=== PATIENT | female | born 1960 | race Caucasian/White ===

== ENCOUNTER → 2017-08-22 | Outpatient (CLI) | payer OTHER ==
--- NOTE | 2017-08-22 14:43 | DIREP ---
PROCEDURE:MRI SPINE LUMBAR W/O COMPARISON:None. INDICATIONS:RADICULOPATHY TECHNIQUE:A comprehensive examination was performed utilizing a variety of imaging planes and imaging parameters to optimize visualization of suspected pathology. Images were performed without intravenous gadolinium contrast. FINDINGS: ALIGNMENT:Normal. VERTEBRA:No fracture, pars defect, or osseous lesion. CORD/CAUDA EQUINA:Normal size, contour, and signal intensity. PARASPINAL AREA:Normal with no visible mass. OTHER:None. LUMBAR DISC LEVELS T12-L1:Small disc protrusion, no stenosis is identified L1-L2:Minimal broad-based bulge. No significant disc/facet abnormality, spinal stenosis, or foraminal stenosis. L2-L3:No significant disc/facet abnormality, spinal stenosis, or foraminal stenosis. L3-L4:No significant disc/facet abnormality, spinal stenosis, or foraminal stenosis. L4-L5:No disc protrusion. There is severe ligamenta flava and facet hypertrophy resulting in moderate central canal stenosis, midline sagittal diameter 7 mm. Asymmetric loss of disc height and broad-based component resulting in right greater than left neural foraminal narrowing L5-S1:Disc height loss with endplate changes. There is moderate ligamenta flava and facet hypertrophy. There is bilateral neural foraminal stenosis. CONCLUSION:Facet sclerosis and hypertrophy, especially L4-5, resulting in moderate central canal stenosis. Neural foraminal stenosis at L4-5 and L5-S1 as described above Dictated by: Salty Anders MD on 08/22/2017 at 02:24 PM
== END | disposition home or self-care (01) ==
LOC: RAD 12:28
PROVIDERS: ATTEND Physical Medicine & Rehabilitation
DX: M54.16 Radiculopathy, lumbar region (principal); M48.06 Spinal stenosis, lumbar region
CPT/HCPCS: 72148

== ENCOUNTER → 2017-09-13 | Outpatient (CLI) | payer OTHER ==
--- NOTE | 2017-09-13 16:28 | DIREP ---
PROCEDURE:XRAY SPINE LUMBAR MIN 4 VWS COMPARISON:None. INDICATIONS:SPINAL STENOSIS, LBP, RADICULOPATHY, SPONDYLOSIS FINDINGS: ALIGNMENT:No significant scoliosis. Exaggerated lumbar lordosis. Approximate 5 mm anterolisthesis of L4 on L5 is likely degenerative secondary to advanced facet arthropathy. Vertebral body alignment is otherwise maintained. VERTEBRAE:No compression deformity or acute fracture. DISK SPACES:Advanced degenerative disc disease at the lumbosacral junction with vacuum disc phenomenon. Mild to moderate degenerative disc disease at the thoracolumbar junction and within the imaged lower thoracic spine. Minimal degenerative disc disease at L4-L5. Facet arthropathy throughout the mid to lower lumbar spine. This is fairly advanced within the lower lumbar spine at L4-L5 and L5-S1. SPONDYLOLISTHESIS:Grade 1 anterolisthesis of L4 on L5 as discussed above. SACROILIAC JOINTS:Normal. OTHER:Calcifications of the aorta. CONCLUSION: 1. No acute osseous abnormality. 2. Multilevel degenerative disc and spine disease with grade 1 anterolisthesis of L4 on L5 as discussed above. Dictated by: Oumar Solares M.D. On 09/13/2017 at 04:23 PM
== END | disposition home or self-care (01) ==
LOC: RAD 13:33
PROVIDERS: ATTEND Orthopaedic Surgery Orthopaedic Surgery of the Spine
DX: M51.16 Intervertebral disc disorders with radiculopathy, lumbar region (principal); M48.061 Spinal stenosis, lumbar region without neurogenic claudication; M47.26 Other spondylosis with radiculopathy, lumbar region
CPT/HCPCS: 72110